=== PATIENT | female | born 1970 | race Caucasian/White ===

== ENCOUNTER 2021-12-20 10:29 | Outpatient (CLI) | payer OTHER, SELFPAY ==
--- NOTE | 2021-12-20 10:45 | MM_ITS ---
Final Report Patient: RICKIE FRANKS Facility:?[facility] Patient ID:?[id number] :?1970 Study:?XRay Breast Bilateral 2D W/CAD-12/20/2021 11:35:01 AM Ordering Physician:Vnaia Robles Final Report: BILATERAL SCREENING MAMMOGRAM WITH COMPUTER-AIDED DETECTION INDICATION: Screening mammogram. TECHNIQUE: BILATERAL screening mammograms with computer-aided detection. COMPARISON FILM: Mammograms 11/18/2020, 03/23/2017. BREAST COMPOSITION: There are scattered areas of fibroglandular density FINDINGS: Asymmetry in the lower RIGHT breast approximately 10 cm from the nipple seen on MLO view only. No suspicious microcalcifications, architectural distortion or skin thickening. LEFT breast is unremarkable with no mass, suspicious microcalcifications, architectural distortion or other evidence of malignancy. IMPRESSION: Focal asymmetry in the lower mid-RIGHT breast approximately 10 cm from the nipple seen on MLO view only. Recommend RIGHT MLO with tomosynthesis, spot compression, and targeted ultrasound for further evaluation. BI-RADS Category 0: Incomplete: Need Additional Imaging Evaluation and/or Prior Mammograms for Comparison [facility] will contact the patient for follow-up. Saul Holloway M.D. Diagnostic/Musculoskeletal Radiologist [email or web address] RADHA/josé miguel D& Transcribed: 9:44 a.m. RAN/Dictated by: Saul Holloway MD @ 12/21/2021 8:01:00 AM (Electronic Signature)
--- NOTE | 2021-12-20 11:15 | US_ITS ---
Final Report Patient: RICKIE FRANKS Facility:?[facility] Patient ID:?[id number] Site Patient ID:?[id number]. Site :?[id number] Study:?US Pelvis -12/20/2021 11:55:34 AM Ordering Physician:Vania Robles Final Report: INDICATION: Abnormal uterine bleeding. TECHNIQUE: Ultrasound pelvis transvaginal for better assessment or to better visualize the endometrium. Real-time sonographic images with spectral and color Doppler imaging of the ovaries were obtained. COMPARISON: None. FINDINGS: Uterus: 8 x 4.2 x 5.1 cm. Normal echotexture of the myometrium. There is a submucosal or endometrial lesion in the anterior lower uterine segment measuring 1.5 x 1.0 x 0.9 cm. Endometrium: Transvaginal imaging was performed to better evaluate the endometrium. Endometrial thickness measures 9 mm. Small amount of fluid in fundal endometrium measuring 2.2 x 0.7 x 0.4 cm. Right ovary measures 3.0 x 2.6 x 1.9 cm. Left ovary is surgically absent. No adnexal lesions or masses. Cul-de-sac: No significant free fluid. IMPRESSION: 1. Small collection of fluid in fundal endometrium measuring 2.2 x 0.7 x 0.4 cm 2. Anterior lower uterine segment mass lesion most likely sub mucosal fibroid versus endometrial mass. Endometrium may be abnormally thickened measuring 9 mm. Dictated by Saul Holloway MD @ 12/20/2021 12:13:08 PM (Electronic Signature)
== END 2021-12-20 10:30 | disposition home or self-care (01) ==
LOC: MAMMO 10:31
PROVIDERS: PCP Family Medicine; Visit Provider Obstetrics & Gynecology
DX: Z12.31 Encounter for screening mammogram for malignant neoplasm of breast (principal); R92.0 Mammographic microcalcification found on diagnostic imaging of breast; N93.9 Abnormal uterine and vaginal bleeding, unspecified; R19.00 Intra-abdominal and pelvic swelling, mass and lump, unspecified site; R93.89 Abnormal findings on diagnostic imaging of other specified body structures
CPT/HCPCS: 76830; 76856; 77063; 77067

== ENCOUNTER 2021-12-27 08:43 | Outpatient (CLI) | payer OTHER, SELFPAY ==
--- NOTE | 2021-12-27 08:45 | CRLHL7_ITS ---
For Patients: As a result of the Cures Act, medical imaging exams and procedure reports are released immediately into your electronic medical record. You may view this report before your referring provider. If you have questions, please contact your health care provider. RIGHT DIAGNOSTIC MAMMOGRAM WITH COMPUTER-AIDED DETECTION WITH TOMOSYNTHESIS RIGHT BREAST ULTRASOUND CLINICAL HISTORY: RIGHT breast mass/asymmetry. COMPARISON: 12/20/2021, 11/12/2020 TECHNIQUE: Digital RIGHT mammogram in 1 projection. Real-time ultrasound imaging of RIGHT breast with imaging documentation. Scanning was performed by both the technologist and the radiologist. BREAST COMPOSITION: There are scattered areas of fibroglandular density. FINDINGS: 3D spot-compression MLO mammogram RIGHT breast. Focus of density within the inferior RIGHT breast is similar to the prior exam without architectural distortion. No adenopathy or suspicious calcifications. Targeted RIGHT breast ultrasound performed inferiorly. At 7 o`clock 9 cm from the nipple, there is a benign cystic area measuring 7 x 2 x 8 millimeters. Similar benign-appearing cystic area just beneath the skin 6 o`clock 9 cm from the nipple. No suspicious findings. IMPRESSION: Benign cystic changes RIGHT breast 6-7 o`clock 9 cm from the nipple. No evidence of malignancy. RECOMMENDATIONS: Annual BILATERAL screening mammography. BI-RADS Category 2: Benign Results and recommendations discussed with the patient. Dictated by Chi Bautista MD @ 12/27/2021 10:44:08 AM Signed by: Chi Bautista @ 12/27/2021 10:44:08 AM (Electronic Signature) (Electronically Signed)
--- NOTE | 2021-12-27 09:15 | CRLHL7_ITS ---
For Patients: As a result of the Century Cures Act, medical imaging exams and procedure reports are released immediately into your electronic medical record. You may view this report before your referring provider. If you have questions, please contact your health care provider. RIGHT BREAST ULTRASOUND, 12/27/2021 PLEASE SEE RIGHT DIAGNOSTIC MAMMOGRAM OF SAME DAY. CRL:payal PT/Dictated by: Chi Bautista MD @ 12/27/2021 10:44:00 AM (Electronically Signed)
== END 2021-12-27 08:44 | disposition home or self-care (01) ==
LOC: MAMMO 08:44
PROVIDERS: PCP Family Medicine; Visit Provider Obstetrics & Gynecology
DX: N63.10 Unspecified lump in the right breast, unspecified quadrant (principal); N60.01 Solitary cyst of right breast; R92.8 Other abnormal and inconclusive findings on diagnostic imaging of breast
CPT/HCPCS: 76642; 77065; G0279

== ENCOUNTER 2022-01-19 07:17 | Day surgery (SDC) | payer OTHER, SELFPAY ==
[2022-01-19] MEDS: LACTATED RINGERS 1000 ML 1,000 ML 100 ML IV (07:30)
[2022-01-19 07:54] VITALS: BP 123/75; PULSE 67; RESP 16; TEMP 36.6; O2SAT 97
[2022-01-19 08:27] LABS: HCG Qualitative* Negative (Negative)
[2022-01-19] MEDS: SODIUM CHLORIDE 0.9 % (FLUSH) 10 ML SYRINGE IVF ×2 (08:32→12:17)
[2022-01-19] MEDS: ETHYL CHLORIDE 1 APPLICATION 1 APPLIC TOPICAL (08:32)
[2022-01-19] MEDS: LIDOCAINE 1% 20 ML VIAL 10 ML INJECTION (10:02)
--- NOTE | 2022-01-19 10:02 | P.GYNPRC_ITS ---
Procedure Note Date Seen: 01/19/22 Procedure Details: PREOPERATIVE DIAGNOSIS: Menorrhagia, intracavitary uterine lesion POSTOPERATIVE DIAGNOSIS: Menorrhagia, submucous fibroid PROCEDURE: Hysteroscopy, resection of submucous fibroid, dilation and curettage SURGEON: Margaret Mccartney MD ANESTHESIA: Monitored anesthesia care, paracervical block IV FLUIDS: 700 mL crystalloid URINE OUTPUT: 25 mL EBL: 15 mL SALINE DEFICIT: 1095 mL FINDINGS: 1. Exam under anesthesia revealed stage I cystocele. Uterus was anteverted, not palpably enlarged, and there were no palpable adnexal masses. 2. Upon hysteroscopy, survey of the endocervix was normal. Survey of the endometrial cavity revealed a largely submucous fibroid impinging upon the left lower uterine segment and distorting the cavity. It was approximately 2.5 cm in greatest dimension. The endometrium was otherwise fairly thin, and bilateral tu bal ostia were normal appearance. COMPLICATIONS: None PROCEDURE IN DETAIL: Patient was taken to the operating room with IV running. She was positioned in dorsal lithotomy position with her legs fully supported in Yellofin stirrups. Monitored anesthesia care was administered. She was prepped and draped in the usual sterile fashion. Exam under anesthesia was performed for the above-noted findings. Speculum was inserted. Cervix visualized and grasped along the anterior lip with a single-tooth tenaculum. Cervix was serially dilated to accommodate the TRUCLEAR hysteroscope. This was assembled with saline inflow and outflow in place. The line was flushed of bubbles. The hysteroscope was advanced through the cervix into the endometrial cavity for the above noted findings. The cervix was again dilated to accommodate the larger hysteroscope, in order to use the dense tissue blade. The tissue morcellator was then inserted through the operating channel. Window lock was performed. Under direct visualization, the endometrial cavity was circumferentially curetted with the dense tissue blade. The hysteroscope and morcellator were then removed from the uterus. Tenaculum was removed from the anterior lip of cervix. Hemostasis was noted. Patient tolerated procedure well. She was taken to recovery area in stable condition.
--- NOTE | 2022-01-19 10:02 | W.ANESCHARGE ---
Anesthesia Charges Start Date/Time Anesthesia Start Date: 01/19/22 Anesthesia Start Time: 09:08 Stop Date/Time Anesthesia Stop Date: 01/19/22 Anesthesia Stop Time: 10:02 Summary Emergency: No
[2022-01-19 10:07] VITALS: BP 139/80; PULSE 74; RESP 16; TEMP 36.1; O2SAT 96
[2022-01-19 10:20] VITALS: BP 127/68; PULSE 66; RESP 16; O2SAT 96
--- NOTE | 2022-01-19 10:20 | W.ANESCHARGE ---
Anesthesia Charges Start Date/Time Anesthesia Start Date: 01/19/22 Anesthesia Start Time: 09:08 Stop Date/Time Anesthesia Stop Date: 01/19/22 Anesthesia Stop Time: 10:02 Summary Emergency: No
[2022-01-19] MEDS: fentaNYL 100 MCG/2 ML inj 50 MCG IVP ×2 (10:30→10:38)
[2022-01-19 10:40] VITALS: BP 136/80; PULSE 70; RESP 14; O2SAT 95
[2022-01-19 11:37] VITALS: BP 99/52; PULSE 88; RESP 16; TEMP 36.6; O2SAT 96
[2022-01-19] MEDS: ACETAMINOPHEN 500 MG TABLET 1000 MG PO (11:41)
[2022-01-19] MEDS: METOCLOPRAMIDE HCL 5 MG/ML INJ 10 MG IVP (12:15)
[2022-01-19 12:20] VITALS: BP 116/71; PULSE 66; RESP 16; O2SAT 98
== END 2022-01-19 12:28 | disposition home or self-care (01) ==
PROVIDERS: PCP Family Medicine; Visit Provider Obstetrics & Gynecology
PROC: 0UDB8ZZ Extraction of Endometrium, Via Natural or Artificial Opening Endoscopic (ICD-10-PCS; CPT 58558; principal; 2022-01-19 08:30)
DX: N92.0 Excessive and frequent menstruation with regular cycle (principal); D25.0 Submucous leiomyoma of uterus
CPT/HCPCS: 58561; 00952; 36415; 84703; 86850; 86900; 86901; 88305; A9270; J1100; J1885; J2250; J2405; J2704; J2765; J3010; J7120

== ENCOUNTER 2022-06-09 15:03 | Outpatient (CLI) | payer OTHER, SELFPAY ==
[2022-06-09 17:02] LABS: Vitamin D 25 Hydroxy* 31 ng/mL (30-80)
== END 2022-06-09 15:04 | disposition home or self-care (01) ==
LOC: NFLDREF 15:04
PROVIDERS: PCP Family Medicine; Visit Provider Obstetrics & Gynecology
DX: R53.83 Other fatigue (principal)
CPT/HCPCS: 82306

== ENCOUNTER 2022-06-14 14:00 | Outpatient (RCR) | payer OTHER, SELFPAY | END 2022-06-15 10:57 | disposition home or self-care (01) | PROVIDERS: PCP Family Medicine; Visit Provider Obstetrics & Gynecology | DX: N39.41 Urge incontinence (principal); Z51.89 Encounter for other specified aftercare | CPT/HCPCS: 97110; 97112; 97140; 97162; 97535 ==

== ENCOUNTER 2023-04-06 08:00 | Outpatient (CLI) | payer OTHER, SELFPAY ==
--- NOTE | 2023-04-06 08:15 | CRLHL7_ITS ---
For Patients: As a result of the Cures Act, medical imaging exams and procedure reports are released immediately into your electronic medical record. You may view this report before your referring provider. If you have questions, please contact your health care provider. BILATERAL SCREENING MAMMOGRAM WITH COMPUTER-AIDED DETECTION AND TOMOSYNTHESIS TECHNIQUE: CC and MLO views were obtained. These mammographic images have been obtained using full-field digital technique. These mammographic images were interpreted with the benefit of computer-aided detection. Breast Tomosynthesis was used in this interpretation. COMPARISON FILM: 12/20/21, 10/29/20, 03/23/17. FINDINGS: There are scattered areas of fibroglandular density IMPRESSION: There is no radiographic evidence for malignancy. ASSESSMENT: BI-RADS Category 1: Negative RECOMMENDATION: Routine screening mammogram in 1 year. A lay language report of this examination will be provided to the patient. Chi Bautista M.D. Diagnostic Radiologist [email or web address] Transcribed: 12:27 p.jeff villafuerte/Dictated by: Chi Bautista MD @ 04/06/2023 10:04:00 AM (Electronically Signed)
== END 2023-04-06 08:01 | disposition home or self-care (01) ==
LOC: MAMMO 08:04
PROVIDERS: PCP Family Medicine; Visit Provider Family Medicine
DX: Z12.31 Encounter for screening mammogram for malignant neoplasm of breast (principal)
CPT/HCPCS: 77063; 77067

== ENCOUNTER 2023-04-20 09:29 | Outpatient (CLI) | payer OTHER, SELFPAY | END 2023-04-20 09:30 | disposition home or self-care (01) | PROVIDERS: PCP Family Medicine; Visit Provider Registered Nurse | DX: Z01.419 Encounter for gynecological examination (general) (routine) without abnormal findings (principal); R68.82 Decreased libido; Z13.6 Encounter for screening for cardiovascular disorders; Z13.29 Encounter for screening for other suspected endocrine disorder | CPT/HCPCS: 80061; 84443 ==

== ENCOUNTER 2023-08-30 14:03 | Outpatient (CLI) | payer OTHER, SELFPAY | END 2023-08-30 14:04 | disposition home or self-care (01) | LOC: LKVREF 14:04 | PROVIDERS: PCP Physician Assistant Medical; Visit Provider Physician Assistant Medical | DX: R73.03 Prediabetes (principal) | CPT/HCPCS: 80053 ==

== ENCOUNTER 2023-11-01 16:37 | Outpatient (CLI) | payer OTHER, SELFPAY ==
--- OUTSIDE RECORDS SUMMARY | 2023-11-02 06:44 | XMS_ITS | Clinical Summary ---
Author Name Unknown Organization [facility] Address [place], [place] [address] Care Team Providers Care Cooper Helper Name Role Phone Kiran Bautista MD Primary Care Provider [phone] Allergies Active Allergy Reactions Criticality Noted Date Comments Sulfa (Sulfonamide Antibiotics) *Unknown 09/2013 Medications Medication Sig Dispensed Refills Start Date End Date Status busPIRone (BUSPAR) 10 mg tablet 15mg in the morning, 10 mg in the evening 0 05/10/2020 Active ipratropium-albuter oL (COMBIVENT RESPIMAT) (20-100 mcg each actuation) mist inhaler Inhale 1 Puff by mouth 4 times daily. 0 05/10/2020 Active norethindrone-ethin yl estradiol (LOESTRIN 07/14, ,) 1-20 mg-mcg tablet Take 1 tablet by mouth once daily. 1 Package 05/10/2020 Active cholecalciferol, Vitamin D3, 2,000 unit tablet Take once daily 05/10/2020 Active aspirin (ECOTRIN) 81 mg enteric coated tablet Take 1 tablet by mouth once every other day. 0 05/10/2020 Active rosuvastatin (CRESTOR) 5 mg tabletIndications:A gatston CAC score 100-199 Take 0.5 Tablets (2.5 mg) by mouth once daily. Additional refills require cardiology appt with labs. Please call and schedule 90 Tablet 02/08/2022 Active Active Problems Problem Noted Date Diagnosed Date Hyperlipidemia 05/16/2020 Agatston CAC score 100-199 05/08/2020 Overview: HeartScan 02/27/2020 CAC score 136.5 (96th percentile). Palpitations 05/04/2017 SOB (shortness of breath) 05/04/2017 Family History Medical History Relation Name Comments Premature CHD (under age 60) Father of massive AK at age 46 Relation Name Status Comments Father Social History Tobacco Use Types Packs/Day Years Used Date Smoking Tobacco: Never Smokeless Tobacco: Never Alcohol Use Standard Drinks/Week Comments No 0 (1 standard drink = 0.6 oz pur e alcohol) Social Connections Answer Date Recorded Frequency of Communication with Friends and Fami ly Not on file 06/25/2021 Financial Resource Strain Answer Date R ecorded Difficulty of Paying Living Expenses Not on file 06/25/2021 Difficulty of Paying Living Expenses Not on file 06/25/2021 Sex and Gender Information Value Date Recorded Sex Assigned at Not on file Gender Identity Not on file Sexual Orientation Not on file Obstetrics History Last Filed Vital Signs Vital Sign Reading Time Taken Comments Blood Pressure 116/70 02/01/2021 10:00 AM CDT Pulse 72 02/01/2021 10:00 AM CDT Temperature 36.7 ??C (98.1 ??F) 05/10/2020 8:22 AM CS T Respiratory Rate 14 05/05/2014 1:53 PM AUDIO/VISUAL MANAGER Oxygen Saturation 96% 02/01/2021 10:00 AM CDT Inhaled Oxygen Concentration - - Weight 88.5 kg (195 lb) 02/01/2021 10:00 AM CDT Height 162.6 cm (5' 4) 02/01/2021 10:00 AM CDT Body Mass Index 33.47 02/01/2021 10:00 AM CDT Plan of Treatment Health Maintenance Due Date Last Done Comments Tdap 11/16/1979 Depression screening for age 12+ 1980 HIV for age 15-65 11/16/1983 Hepatitis C screening for age 18-79 1986 Tetanus booster 1988 Colonoscopy through age 75 2013 Mammogram for age 45-75 2013 Zoster (shingles) series for age 50+ (1 of 2) 2018 BMI (ht and wt on same day) for age 18+ 02/01/2022 02/01/2021, 12/01/2020, 05/10/2020 COVID-19 vaccine series (1 - 2023- season) 2023 Influenza for age 50-64 02/24/2024 Pap test for age 21-65 04/20/2026 , 04/20/2023, 03/21/2018, Additional history exists Lipids for age 45-75 05/17/2027 05/17/2022, 11/10/19 21 Pneumococcal series for age 6-64 Aged Out No longer eligible based on patient's age to complete this topic Procedures Procedure Name Priority Date/Time Associated Diagnosis Comments HPV THIN PREP Routine 04/20/2023 10:00 AM CDT LIPID PANEL Routine 05/17/2022 9:16 AM AUDIO/VISUAL MANAGER Pure hypercholesterolemia from Last 3 Months or Most Recently Relevant to Health Maintenance Results * HPV HIGH RISK (04/20/2023 10:00 AM CDT) TYPE 16 Negative Negative 04/25/2023 1:54 PM CDT [facility] TYPE 18 Negative Negative 04/25/2023 1:54 PM CDT [facility] OTHER HIGH RISK TYPES Negative Negative 04/25/2023 1:54 PM CDT [facility] Other (Cervical) 04/20/2023 10:00 AM CDT 04/23/2023 2:03 PM CDT Narrative [facility] - 04/25/2023 1:54 PM CDT HPV types 16, 18, 31, 33, 35, 39, 45, 51, 52, 56, 58, 59, 66 and 68 DNA were undetectable or below the pre-set threshold. Methodology: Jj Joi 4800 HPV Test Karissa Wolff NP MICROBIOLOGY [facility] [address] [place] [address], * LIPID PANEL (05/17/2022 9:16 AM AUDIO/VISUAL MANAGER) CHOLESTEROL,TOTAL 185 100 - 199 mg/dL 05/18/2022 2:23 PM AUDIO/VISUAL MANAGER [facility] TRIGLYCERIDES 92 <150 mg/dL 05/18/2022 2:23 PM AUDIO/VISUAL MANAGER [facility] HDL CHOLESTEROL 64 >40 mg/dL 2:23 PM AUDIO/VISUAL MANAGER [facility] NON-HDL CHOLESTEROL 121 <145 mg/dl 05/18/2022 2:23 PM AUDIO/VISUAL MANAGER [facility] CHOL/HDL RATIO 2.89 <4.50 05/18/2022 2:23 PM AUDIO/VISUAL MANAGER [facility] LDL CHOLESTEROL 103 <=130 mg/dL 05/18/2022 2:23 PM AUDIO/VISUAL MANAGER [facility] VLDL CHOLESTEROL 18 <=30 mg/dL 05/18/2022 2:23 PM AUDIO/VISUAL MANAGER [facility] PROVIDER ORDERED STATUS RANDOM 05/18/2022 2:23 PM AUDIO/VISUAL MANAGER [facility] Blood BLOOD SPECIMEN / Unknown Venipuncture / Unknown 05/17/2022 9:16 AM AUDIO/VISUAL MANAGER 05/17/2022 9:16 AM AUDIO/VISUAL MANAGER [facility] [address] [place] [address], from Last 3 Months or Most Recently Relevant to Health Maintenance Advance Directives * Full Code (Latest Code Status on File) Date Activated Date Inactivated Comments 05/05/2014 9:29 AM 05/05/2014 4:42 PM Care Teams Cooper Helper Relationship Specialty Start Date End Date Kiran Bautista MD [address] [place] [address] PCP - General Family Practice 05/10/20
--- OUTSIDE RECORDS SUMMARY | 2023-11-02 06:45 | XMS_ITS | Encounter Summary ---
Author Name Unknown Organization [place] Address [facility] [place] [address] Care Team Providers Care Superintendent Radio Communications Name Role Phone Kiran Bautista MD Primary Care Provider Doretha Low MD Unavailable Doyle Bar MD Unavailable [phone] Marsha Townsend RN Unavailable [phone] Andrey Portillo MD Unavailable [phone] Doretha Low MD Unavailable Daniele Zhou MD Unavailable [phone] Doretha Low MD Unavailable Daniele Zhou MD Unavailable [phone] Encounter Details Date Type Department Care Team (Late st Contact Info) Description 11/08/2020 [facility] [address] [place] [address] Caterina Adame LPN Social History Tobacco Use Types Packs/Day Years Used Date Smoking Tobacco: Never Smokeless Tobacco: Never Alcohol Use Standard Drinks/Week Comments No 0 (1 standard drink = 0.6 oz pur e alcohol) PHQ-2 Answer Date Recorded PHQ-2 Score 0 10/28/2020 Sex and Gender Information Value Date Recorded Sex Assigned at Female 10/31/2020 8:19 PM CDT Gender Identity Female 10/31/2020 8:19 PM CDT Sexual Orientation Not on file COVID-19 Exposure Response Date Recorded In the last month, have you been in contact with someone who was confirmed or suspected to have Coronavirus / COVID-19? No / Unsure 11/10/2020 10:48 AM CDT documented as of this encounter Plan of Treatment Not on file documented as of this encounter Visit Diagnoses Not on filedocumented in this encounter Care Teams Superintendent Radio Communications Relationship Specialty Start Date End Date Kiran Bautista MD PCP - General Family Medicine 10/28/20 Doretha Low MD [address] [address] Assigned Surgical Provider 11/21/20 Doyle Bar MD [address] [address] Assigned Pulmonology Provider 11/14/20 05/12/22 Marsha Townsend RN [address] Surgery 04/04/21 Andrey Portillo MD [address] [address] Assigned Surgical Provider 05/06/22 Doretha Low MD [address] [address] Assigned Surgical Provider 06/10/22 Daniele Zhou MD [address] [address] Assigned Surgical Provider 08/19/22 Doretha Low MD [address] [address] Assigned Surgical Provider 10/21/2210/27/22 Daniele Zhou MD [address] [address] Assigned Surgical Provider 10/28/22 documented as of this encounter
--- OUTSIDE RECORDS SUMMARY | 2023-11-02 06:45 | XMS_ITS | Clinical Summary ---
Author Name Unknown Organization [facility] Address [address] [place] [address] Care Team Providers Care Housing Project Manager Name Role Phone Doretha Stahl MD Primary Care Provider [phone] Source Comments You are receiving this document as you are listed as the primary care provider,follow-up provider, or the patient has been referred to you for consultation.This is in compliance with the Medicare andSelect Medical [facility] Hospital[facility] EHR Incentive Program,which states Providers who transition their patient to another setting of careor provider of care or refers their patient to another provider of care shouldprovide summary care record for each transition of care or referral. [facility] Allergies Active Allergy Reactions Criticality Noted Date Comments Hydrocodone Hives,Itching High 12/18/2018 Sulfa Antibiotics 03/06/2005 PN: - HIVES Medications Medication Sig Dispensed Refills Start Date End Date Status rosuvastatin (CRESTOR) 5 MG tablet Take by mouth daily. 05/25/2022 Active venlafaxine (EFFEXORXR) 75 MG 24 hour release capsule Take 1 Capsule (75 mg) by mouth daily. 08/30/2022 Active ALBUterol sulfate HFA 108 (90 Base) MCG/ACT inhaler Inhale. 06/09/2022 Active busPIRone (BUSPAR) 10 MG tablet Take 1 Tablet (10 mg) by mouth two times a day. 06/09/2022 Active Cholecalciferol 125 MCG (5000 UT) Take 125 mcg by mouth every other day. Active estradiol (ESTRACE) 0.1 MG/GM vaginal cream Insert vaginally. 06/22/2022 Active oxyCODONE (ROXICODONE) 5 MG immediate release tablet Take 1 Tablet (5 mg) by mouth every 4 hours as needed for Pain. 10 Tablet 10/04/2022 Active Active Problems Problem Noted Date Diagnosed Date Obesity due to excess calori es, unspecified obesity severity 10/03/2022 Mild intermittent asthma without complication Complex tear of medial menis cus of right knee as current injury 09/26/2022 Overview: Added automatically from request for surgery [id number] Bilateral sensorineural hearing loss 02/07/2019 Overview: Cochlear implants Depression, major, in remission 03/11/2015 Overview: Past history of post depression Varicose vein of leg 03/11/2015 Overview: Increased exercise. Considering sclerotherapy in the future. ; Varicose veins H/O melasma 03/11/2015 Overview: Using hydroquinone cream as needed Lactose intolerance 03/02/2014 Hearing loss 06/12/2008 Overview: FROM MENIGITIS @ 4 YEARS OLD ; Hearing Loss Bilateral Resolved Problems Problem Noted Date Diagnosed Date Resolved Date Complex tear of medial menis cus of right knee as current injury 09/26/2022 10/03/2022 Overview: Added automatically from request for surgery [id number] Varicose veins of right lowe r extremity with complications 11/01/2018 10/03/2022 Overview: Added automatically from request for surgery [id number] Paresthesia 03/11/2015 10/03/2022 Overview: in right and left legs. Related to varicose veins. Went to [facility] for evaluation. Cutaneous candidiasis 04/22/20142014 Overview: under breasts Routine health maintenance 03/02/2014 0 10/03/2022 Overview: Reviewed at physical exam 03/02/2014 Menstrual periods: regular Calcium/vit D: Recommended daily DEXA: NA, DUE post menopause ASA: NA Obesity: Body mass index is 29.77 kg/(m^2). Exercise: Recommended daily 30 min Smoking cessation: Never smoker Mammogram: Last normal 02/2013, DUE Pap smear: Last 01/2013 with co-neg HPV, DUE 2018 Colonoscopy: DUE age 48, no FHx Hematuria 05/13/2009 10/03/2022 Overview: MICROSCOPIC; DR. BARRIENTOS 07/2008 Last urinalysis in 2013 within normal limits. 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 06/12/20 08 03/11/2015 Overview: RESECTED DUE TO MENORRHAGIA 2000 ; Myoma Complication of 04/11/2006 Overview: 2004 ; Hyperglycemia w Preg Major depressive disorder, single episode 04/11/2006 03/11/2015 Overview: post- ; Depression Major NOS Encounters Date Type Department Care Team Description 08/21/2023 Notes/Orders [facility] [address] [place] [address] Kalyan Finn MD from Last 3 Months Immunizations Name Administration Dates Next Due Flu Vac (3+ yrs) 05/21/2000 Flu Vac Preserv Free (3+yrs) 04/07/2011,03/26/20 07,04/05/2006,04/13/2005 HepA-HepB ([place], 18+ yrs) 07/19/2011 Influenza LAIV ([place], 2-49 yrs) 04/05/2009,03/25 TB Skin Test (PPD) 04/11/2006,03/17/2005, 005 TDAP (ADACEL) 12/18/2005 Td 02/13/1999 Family History Medical History Relation Name Comments Depression Father Hearing Loss Father Heart Disease Father Kidney/Bladder Disease Father High Blood Pressure Mother Cataract Maternal Grandfather Lupus Maternal Grandfather Stroke Maternal Grandfather Diabetes Maternal Grandmother Osteoporosis Maternal Grandmother Stroke Maternal Grandmother No Known Family HIstory Problems Paternal Grandfather Macular Degeneration Paternal Grandmother Depression Sister depression, ADD BRCA 1/2 Negative Family History Cancer Negative Family History Cancer, Breast Negative Family History Cancer, Colon Negative Family History Cancer, Endometrial Negative Family History Cancer, Ovary Negative Family History Debi Syndrome Negative Family History Diethylstilbestrol Exposure Negative Family History Li-Fraumeni Syndrome Negative Family History Relation Name Status Comments Father depression, dillon al failure, hearing loss Mother Alive Daughter 1 Alive Daughter 2 Alive Maternal Grandfather Maternal Grandmother Paternal Grandfather Paternal Grandmother Sister Alive Son Alive Social History Tobacco Use Types Packs/Day Years Used Date Smoking Tobacco: Former Cigarettes 0.5 25 0 06/25/1977 - 06/25/2002 Smokeless Tobacco: Never Tobacco Cessation:Counseling Given: Not Answered Comments:Quit smoking: Alcohol Use Standard Drinks/Week Comments No 0 (1 standard drink = 0.6 oz pur e alcohol) Sex and Gender Information Value Date Recorded Sex Assigned at Not on file Gender Identity Not on file Sexual Orientation Not on file Last Filed Vital Signs Vital Sign Reading Time Taken Comments Blood Pressure 119/66 10/04/2022 3:50 PM CDT Pulse 75 10/04/2022 3:50 PM CDT Temperature 36.5 ??C (97.7 ??F) 10/04/2022 3:23 PM CD T Respiratory Rate 16 10/04/2022 3:50 PM CDT Oxygen Saturation 97% 10/04/2022 3:50 PM CDT Inhaled Oxygen Concentration - - Weight 86.2 kg (190 lb) 10/04/2022 11:52 AM CDT Height 162.6 cm (5' 4) 10/04/2022 11:52 AM CDT Body Mass Index 32.61 10/04/2022 11:52 AM CDT Plan of Treatment Health Maintenance Due Date Last Done Comments Hep C Screening (Preventive Services) 1968 Adult Preventive Visit 1986 HepA (2 of 3 - Hep A Twinrix risk 3-dose series) 08/16/2011 07/19/2011 HepB (2) 08/16/2011 07/19/2011 FIT Colon Cancer Screening 2012 Mammogram 03/09/2015 03/09/2014, 02/23, 12/09/2009 Cervical Cancer Screening 03/11/20182014, 02/10/2013, 07/19/2011, Additional history exists Zoster/Shingles (1 of 2) 2018 Cholesterol 03/11/2020 03/11/2015, 09/0 01/2014, 02/10/2013, Additional history exists COVID-19 Vaccine ( - season) 2023 Influenza (Season Ended) 2024 011, 04/05/2009, 04/10/2008, Additional history exists DTaP/Tdap/Td (4 - Tdap) 02/03/2026 02/04/20 16, 02/04/2016, 12/18/2005, Additional history exists Pneumococcal (3 - PPSV23 or PCV20) 2033 01/07/2021, 10/29/2020 HIV Screening (Preventive Services) Completed 12/04/2006 Hib Aged Out No longer eligi ble based on patient's age to complete this topic IPV (Polio) Aged Out No longer eligi ble based on patient's age to complete this topic MCV4 Aged Out No longer eligi ble based on patient's age to complete this topic Medical Devices Implanted Type Area Timber Grader Device Identifier Shelf Expiration Date Model / Serial / Lot Cochlear Implant Advanced Bionics HI-RES 3D ULTRA CI- [id number] / / Procedures Procedure Name Priority Date/Time Associated Diagnosis Comments ANATOMICAL PATH LIQUID BASED Routine 03/11/2015 10:01 AM CDT LIPID PANEL & DIRECT LDL (IF NEEDED) Routine 03/11/2015 9:57 AM CDT Screening for hyperlipidemia MM MAMMOGRAM SCREENING BILAT W CAD Routine 03/09/2014 2:02 PM CDT Breast screening, unspecified HIV ANTIBODY Routine 12/04/2006 11:43 AM CDT from Last 3 Months or Most Recently Relevant to Health Maintenance Results * Pap Smear (03/11/2015 10:01 AM CDT) 03/11/2015 10:0 1 AM CDT Narrative HP CONVERSION - 03/17/2015 1:51 [place] [address] FINAL GYNECOLOGICAL CYTOLOGY REPORT Pathology #: [id number] ?Date Obtained: 03/11/2015 ? Date Received: 03/12/2015 INTERPRETATION/RESULTS: Negative for Intraepithelial Lesion or Malignancy. SPECIMEN ADEQUACY: Satisfactory for Evaluation. ??Endocervical cells/transformation zone component present. Verified on 03/17/2015 ??by DIANA HORTON(ASCP) (electronic signature) CLINICAL NOTES: ?Abnormal bleeding: No, LMP: 01/25/15, Menstrual status: None Apply, ?Current form of therapy: None apply LIQUID BASED PAP SMEAR SPECIMEN TYPE: ?ROUTINE CERVICAL PAP TEST PLEASE NOTE: The pap smear is a screening test designed to aid in the detection of cervical cancer and its precursor lesions. It is not a diagnostic procedure and should not be used as the sole means of detecting cervical cancer. Both false-positive and false-negative reports may occur. ? End of Report Transcriptions 08/03/2016 2:40 AM CSTNotes Recorded by Susan Caballero RN on 04/05/2015 at 1:55 PMGuevara Carreno,I am writing to let you know that your PAP and HPV result is negative. This means that your test result was normal. No cancer or precancerous cells were seen.Based on current cervical cancer screening recommendations, your next PAP and HPV should be in 3 years. Continue to schedule your annual preventive exams for your overall health.If you have questions about cervical cancer screening or your test results, callCervical Cancer Screening and Management [phone] steele RN on behalf ofDr. Yenny Ritchie, Medical DirectorNorthfield City Hospital Cervical Cancer Screening and Management Julienne Torres APRN, CNP LAB_1 Performing Organization Address [facility] de Phone Number HP CONVERSION * (ABNORMAL) Lipid Panel and Direct LDL(If Needed) (03/11/2015 9:57 AM CDT) Cholesterol 205(H) 0 - 200 mg/dL HP CONVERSION Triglycerides 119 0 - 149 mg/dL HP CONVERSION HDL Cholesterol 54 >39 mg/dL HP CONVERSION Cholesterol/HDL Ratio Screen 3.8 HP CONVERSION LDL Calculated 127 19 - 130 mg/dL HP CONVERSION Hours Fasting 12.0 HP CONVERSION 03/11/2015 9:57 AM CDT 03/11/2015 9:57 AM CDT Narrative HP CONVERSION - 03/11/2015 10:35 AM CDT Performed at [facility], [address] [place] [address] Transcriptions 08/03/2016 3:37 AM CSTNotes Recorded by Julienne Torres APRN, CNP on 03/11/2015 at 11:28 AMElevation in total cholesterol noted. Julienne Torres APRN, CNP LAB_1 Performing Organization Address [facility] de Phone Number HP CONVERSION * MM Mammogram Screening Bilat W CAD (03/09/2014 2:02 PM CDT) Anatomical Region Laterality Modality Breast Bilateral Mammography Impressions 03/09/2014 2:40 PM CDT : BIRADS 1 Negative (overall) Follow Up Mammogram in 1 year - Bilateral The results and recommendations of this examination will be communicated to the patient by the [facility] and we will attempt to schedule any recommended imaging follow up with the patient. Narrative 03/09/2014 2:40 PM CDT Compared to: 03/07/2013 MM Mammogram Screening Bilateral W Cad, 12/09/2009 MM MAMMOGRAM DIGITAL SCRN W CAD Bilateral Breast Findings: There are scattered fibroglandular densities (25-50%) in the breasts. No significant mass, calcifications or other abnormalities are seen in either breast. Procedure Note Niels Hurtado MD - 02/22/2016 Compared to: 03/07/2013 MM Mammogram Screening Bilateral W Cad,12/09/2009 MM MAMMOGRAM DIGITAL SCRN W CAD Bilateral Breast Findings: There are scattered fibroglandular densities (25-50%) in the breasts. No significant mass, calcifications or other abnormalities are seen in either breast. IMPRESSION : BIRADS 1 Negative (overall) Follow Up Mammogram in 1 year - Bilateral The results and recommendations of this examination will be communicated to the patient by the [facility] and we will attempt to schedule any recommended imaging follow up with the patient. Doretha Stahl MD RAD JAZLYN * HIV Antibody (12/04/2006 11:43 AM CDT) HIV 1/HIV 2 Non Reac Non Reac HP CONVERSION 12/04/2006 11:4 3 AM CDT Smita Causey RN LAB_1 HP CONVERSION from Last 3 Months or Most Recently Relevant to Health Maintenance Care Teams Housing Project Manager Relationship Specialty [place] [address] [address] [place] [address] PCP - General Internal Medicine 04/11/16
--- OUTSIDE RECORDS SUMMARY | 2023-11-02 06:45 | XMS_ITS | Encounter Summary ---
Author Name Unknown Organization [facility] Address [facility] [place] [address] Care Team Providers Care Personal Lines Insurance Agent Name Role Phone Kiran Bautista MD Primary Care Provider Doretha Low MD Unavailable Doyle Bar MD Unavailable [phone] Marsha Townsend RN Unavailable [phone] Andrey Portillo MD Unavailable [phone] Doretha Low MD Unavailable Daniele Zhou MD Unavailable [phone] Doretha Low MD Unavailable Daniele Zhou MD Unavailable [phone] Encounter Details Date Type Department Care Team (Late st Contact Info) Description 02/14/2021 [facility] Medical Advice [facility] Audiology [address] 4th [place] [address] Neelam Toussaint, Liam [address] [place] [address] Social History Tobacco Use Types Packs/Day Years Used Date Smoking Tobacco: Never Smokeless Tobacco: Never Alcohol Use Standard Drinks/Week Comments No 0 (1 standard drink = 0.6 oz pur e alcohol) PHQ-2 Answer Date Recorded PHQ-2 Score 0 02/14/2021 Sex and Gender Information Value Date Recorded Sex Assigned at Female 10/31/2020 8:19 PM CDT Gender Identity Female 10/31/2020 8:19 PM CDT Sexual Orientation Not on file COVID-19 Exposure Response Date Recorded In the last month, have you been in contact with someone who was confirmed or suspected to have Coronavirus / COVID-19? No / Unsure 02/16/2021 1:45 PM CDT documented as of this encounter Plan of Treatment Not on file documented as of this encounter Visit Diagnoses Not on filedocumented in this encounter Care Teams Personal Lines Insurance Agent Relationship Specialty Start Date End Date Kiran Bautista MD PCP - General Family Medicine 10/28/20 Doretha Low MD [address] [place] [address] Assigned Surgical Provider 11/21/20 Doyle Bar MD [address] [address] Assigned Pulmonology Provider 11/14/20 05/12/22 Marsha Townsend RN [address] [address] Specialty Dairy Lab Technician Surgery 04/04/21 Andrey Portillo MD [address] [facility] [address] [place] [address] Assigned Surgical Provider 05/06/22 Doretha Low MD [address] [place] [address] [address] [place] [address] Assigned Surgical Provider 06/10/22 Daniele Zhou MD [address] [address] Assigned Surgical Provider 08/19/22 Doretha Low MD [address] [address] Assigned Surgical Provider 10/21/2210/27/22 Daniele Zhou MD [address] [address] Assigned Surgical Provider 10/28/22 documented as of this encounter
--- OUTSIDE RECORDS SUMMARY | 2023-11-02 06:45 | XMS_ITS | Encounter Summary ---
Author Name Unknown Organization [facility] Address [facility] [place] [address] Care Team Providers Care Trimming Machine Operator Name Role Phone Kiran Bautista MD Primary Care Provider Doretha Low MD Unavailable Doyle Bar MD Unavailable [phone] Marsha Townsend RN Unavailable [phone] Andrey Portillo MD Unavailable [phone] Doretha Low MD Unavailable Daniele Zhou MD Unavailable [phone] Doretha Low MD Unavailable Daniele Zhou MD Unavailable [phone] Encounter Details Date Type Department Care Team (Late st Contact Info) Description 12/16/2020 [facility] Medical [facility] [address] [place] [address] [facility] Social History Tobacco Use Types Packs/Day Years [...] PM CDT Sexual Orientation Not on file documented as of this encounter Plan of Treatment Not on file documented as of this encounter Visit Diagnoses Not on filedocumented in this encounter Care Teams Trimming Machine Operator Relationship Specialty Start Date End Date Kiran Bautista MD PCP - General Family Medicine 10/28/20 Doretha Low MD [address] [address] Assigned Surgical Provider 11/21/20 Doyle Bar MD [address] [address] Assigned Pulmonology Provider 11/14/20 05/12/22 Marsha Townsend RN [address] [address] Specialty Administrative Support Technician Surgery 04/04/21 Andrey Portillo MD [address] [address] Assigned Surgical Provider 05/06/22 Doretha Low MD [address] [address] Assigned Surgical Provider 06/10/22 Daniele Zhou MD [address] [address] Assigned Surgical Provider 08/19/22 Doretha Low MD [address] [address] Assigned Surgical Provider 10/21/2210/27/22 Daniele Zhou MD [address] [address] Assigned Surgical Provider 10/28/22 documented as of this encounter
--- OUTSIDE RECORDS SUMMARY | 2023-11-02 06:45 | XMS_ITS | Encounter Summary ---
Author Name Unknown Organization [facility] Address On license of [facility] [place] [address] Care Team Providers Care Management Psychologist Name Role Phone Kiran Bautista MD Primary Care Provider [phone] Doretha Low MD Unavailable Doyle Bar MD Unavailable [phone] Marsha Townsend RN Unavailable [phone] Andrey Portillo MD Unavailable [phone] Doretha Low MD Unavailable Daniele Zhou MD Unavailable [phone] Doretha Low MD Unavailable Daniele Zhou MD Unavailable [phone] Encounter Details Date Type Department Care Team (Late st Contact Info) Description 12/06/2020 [facility] [place] Audiology [address] [place] [address] Neelam Toussaint, Liam [address] [place] [address] Social History Tobacco Use Types Packs/Day [...] on filedocumented in this encounter Care Teams Management Psychologist Relationship Specialty Start Date End Date Kiran Bautista MD PCP - General Family Medicine 10/28/20 Doretha Low MD [address] [place] [address] Assigned Surgical Provider 11/21/20 Doyle Bar MD [address] [address] Assigned Pulmonology Provider 11/14/20 05/12/22 Marsha Townsend RN [address] [address] Specialty Computer Aided Design Drafter Surgery 04/04/21 Andrey Portillo MD 420 [facility] [address] [place] [address] Assigned Surgical Provider 05/06/22 Doretha Low MD [address] [place] [address] [address] [place] [address] Assigned Surgical Provider 06/10/22 Daniele Zhou MD [address] [address] Assigned Surgical Provider 08/19/22 Doretha Low MD [address] [address] Assigned Surgical Provider 10/21/2210/27/22 Daniele Zhou MD [address] [address] Assigned Surgical Provider 10/28/22 documented as of this encounter
--- OUTSIDE RECORDS SUMMARY | 2023-11-02 06:45 | XMS_ITS | Encounter Summary ---
Author Name Unknown Organization [facility] Address [address] [facility] [place] [address] Care Team Providers Care Floral Associate Name Role Phone Kiran Bautista MD Primary Care Provider [phone] Marsha Townsend RN Unavailable [phone] Andrey Portillo MD Unavailable [phone] Doretha Low MD Unavailable Daniele Zhou MD Unavailable [phone] Doretha Low MD Unavailable Daniele Zhou MD Unavailable [phone] Encounter Details Date Type Department Care Team (Late st Contact Info) Description 06/08/2022 [facility] [address] [place] [address] Caterina Adame LPN Social History Tobacco Use Types Packs/Day Years Used Date Smoking Tobacco: Never Smokeless Tobacco: Never Alcohol Use Standard Drinks/Week Comments No 0 (1 standard drink = 0.6 oz pur e alcohol) PHQ-2 Answer Date Recorded PHQ-2 Score 0 05/31/2022 Sex and Gender Information Value Date Recorded Sex Assigned at Female 10/31/2020 8:19 PM CDT Gender Identity Female 10/31/2020 8:19 PM CDT Sexual Orientation Not on file COVID-19 Exposure Response Date Recorded In the last 10 days, have yo u been in contact with someone who was confirmed or suspected to have Coronavirus/COVID-19? No / Unsure 06/06/2022 9:26 AM DENTAL FLOSS PACKER documented as of this encounter Plan of Treatment Not on file documented as of this encounter Visit Diagnoses Not on filedocumented in this encounter Care Teams Floral Associate Relationship Specialty Start Date End Date Kiran Bautista MD PCP - General Family Medicine 10/28/20 Marsha Townsend, RN Specialty Operations Support Manager Surgery 04/04/21 Andrey Portillo MD [address] [address] Assigned Surgical Provider 05/06/22 Doretha Low MD [address] [id number] Assigned Surgical Provider 06/10/22 Daniele Zhou MD [address] [id number] Assigned Surgical Provider 08/19/22 Doretha Low MD [address] [id number] Assigned Surgical Provider 10/21/2210/27/22 Daniele Zhou MD [address] [address] Assigned Surgical Provider 10/28/22 documented as of this encounter
--- OUTSIDE RECORDS SUMMARY | 2023-11-02 06:45 | XMS_ITS | Encounter Summary ---
Author Name Unknown Organization [place] Address [facility] [place] [address] Care Team Providers Care System Safety Manager Name Role Phone Kiran Bautista MD Primary Care Provider Doretha Low MD Unavailable Doyle Bar MD Unavailable [phone] Marsha Townsend RN Unavailable [phone] Andrey Portillo MD Unavailable [phone] Doretha Low MD Unavailable Daniele Zhou MD Unavailable [phone] Doretha Low MD Unavailable Daniele Zhou MD Unavailable [phone] Encounter Details Date Type Department Care Team (Late st Contact Info) Description 02/16/2021 [facility] Medical Advice [facility] Audiology [address]th [place] [address] Neelam Toussaint, Liam [address] [place] [address] Social History Tobacco Use Types Packs/Day [...] on filedocumented in this encounter Care Teams System Safety Manager Relationship Specialty Start Date End Date Kiran Bautista MD PCP - General Family Medicine 10/28/20 Doretha Low MD [address] [place] [address] Assigned Surgical Provider 11/21/20 Doyle Bar MD [address] [address] Assigned Pulmonology Provider 11/14/20 05/12/22 Marsha Townsend RN [address] [address] Specialty Ux Specialist Surgery 04/04/21 Andrey Portillo MD 420 [facility] [address] [place] [address] Assigned Surgical Provider 05/06/22 Doretha Low MD [address] [place] [address] [address] [place] [address] Assigned Surgical Provider 06/10/22 Daniele Zhou MD [address] [address] Assigned Surgical Provider 08/19/22 Doretha Low MD [address] [address] Assigned Surgical Provider 10/21/2210/27/22 Daniele Zhou MD [address] [address] Assigned Surgical Provider 10/28/22 documented as of this encounter
--- OUTSIDE RECORDS SUMMARY | 2023-11-02 06:45 | XMS_ITS | Encounter Summary ---
Author Name Unknown Organization [facility] Address [address] [place] [address] Care Team Providers Care Manager Ed Name Role Phone Doretha Stahl MD Primary Care Provider [phone] Encounter Details Date Type Department Care Team (Late st Contact Info) Description 08/21/2023 Notes/Orders [facility] [address] [place] [address] Kalyan Finn MD [address] [facility] [place] [address] Social History Tobacco Use Types Packs/Day Years Used Date Smoking Tobacco: Former Cigarettes 0.5 25 0 06/25/1977 - 06/25/2002 Smokeless Tobacco: Never Comments:Quit smoking: Alcohol Use Standard Drinks/Week Comments No 0 (1 standard drink = 0.6 oz pur e alcohol) Sex and Gender Information Value Date Recorded Sex Assigned at Not on file Gender Identity Not on file Sexual Orientation Not on file documented as of this encounter Plan of Treatment Not on file documented as of this encounter Visit Diagnoses Not on filedocumented in this encounter Care Teams Manager Ed Relationship Specialty [place] [address] [employer] [address] PCP - General Internal Medicine 04/11/16 documented as of this encounter
--- OUTSIDE RECORDS SUMMARY | 2023-11-02 06:45 | XMS_ITS | Encounter Summary ---
Author Name Unknown Organization [facility] Address [address] [place] [address]. [place] [address] Care Team Providers Care It Support Specialist Name Role Phone Kiran Bautista MD Primary Care Provider [phone] Marsha Townsend RN Unavailable [phone] Daniele Zhou MD Unavailable [phone] Encounter Details Date Type Department Care Team (Late st Contact Info) Description 01/29/2023 MyC Medical Advice [facility] Audiology [address] 4[address] [place] [address] Neelam Toussaint, [address] [address] Social History Tobacco Use Types Packs/Day [...] on filedocumented in this encounter Care Teams It Support Specialist Relationship Specialty Start Date End Date Kiran Bautista MD PCP - General Family Medicine 10/28/20 Marsha Townsend RN Specialty Purchasing Department Clerk Surgery 04/04/21 Daniele Zhou MD [address] [place] [address] [address] [place] [address] Assigned Surgical Provider 10/28/22 documented as of this encounter
--- OUTSIDE RECORDS SUMMARY | 2023-11-02 06:45 | XMS_ITS | Continuity of Care Document ---
Author Name Unknown Organization [facility] Address [address] [address] [place] [address] Phone Care Team Providers Care Calender Runner Name Role Phone Reginald Wu Unavailable Unavailable Allergies, Adverse Reactions, Alerts Substance Reaction Status Criticality beclomethasone Numbnesstingling Active No Inform ation Sulfa (Sulfonamide Antibiotics) HivesHives Active No Information Medications Medication Instructions Dosage Effective Dates (start - stop) Status Comments Ventolin HFA 90 mcg/actuation aerosol inhaler inhale 2 puff by inhalation route every 4 - 6 hours as needed 180 MCG - Active ESTROGEL (unknown strength) Use vaginally once every other day Not Available - Active buspirone 10 mg tablet take 1 tablet by oral route 2 times every day 10 MG - Active venlafaxine 75 mg tablet take 1 tablet by oral route 3 times every day with food 75 MG - Active fluticasone propionate 50 mcg/actuation nasal spray,suspension spray 1 - 2 spray by intranasal route every day in each nostril as needed 50-100 MCG - Active Procedures Procedure Date cancelled appt Colonoscopy Flex; W/remov Les- 23 Level Iv-surg Path Gross/micro 23 Offic/outpt E&m New Mod-hi Advance Directives Directive Yes / No Effective Date File Name No Information Encounters Encounter Description Practice Location Reason(s) For Visit Diagnoses Date Provider Providers Copied on Encounter [facility], [address] [address], [place], [id number], [place] tel:[phone] [employer] No Information 3 Mendel Montelongo. [address] [facility], [place], [id number], [place]. tel:[phone] Referring Provider: Referral Self, USE FOR SELF REFERRALS. [facility], [address] [address], [place], [id number], [place] tel:[phone] [facility] GI Symptoms or Concerns (chief complaint) Colorectal polypsDiverticulos is of colonInternal hemorrhoidsHemorrh age of anus and rectumBenign neoplasm of transverse colonBenign neoplasm of sigmoid colonDvrtclos of lg int w/o perforation or abscess w/o bleedingBenign neoplasm of sigmoid colonBenign neoplasm of transverse colon 3 Marvin Hager. [address] [facility], [address], [place], [id number], [place]. tel:[phone] Referring Provider: Referral Self, USE FOR SELF REFERRALS. Offic/outpt E&m New Mod-hi [facility], [address] [address], [place], [id number], [place] tel:[phone] [facility] GI Symptoms or Concerns (chief complaint) Full incontinence of fecesRectal bleedingThrombosed external hemorrhoidDietary counseling and surveillanceElevat ed blood-pressure reading, w/o diagnosis of htn 3 Collin Marroquin. [address] [facility] [address], [address], [place], [id number], [place]. tel:[phone] Referring Provider: Referral Self, USE FOR SELF REFERRALS. [facility], [address] [address], [place], [id number], [place] tel:[phone] [facility] No Information 3 Giuseppe Alarcon. [address] [facility] [address], [address], [place], [id number], [place]. tel:[phone] Family History Family Member Type Diagnosis Age At Onset Sister Problem (finding) Gallbladder disease Daughter Problem (finding) Asthma Mother Problem (finding) Colon polyps Mother Problem (finding) Irritable bowel syndrom e Mother Problem (finding) Gallbladder disease Mother Problem (finding) Thyroid disorder Mother Problem (finding) Asthma Immunizations Vaccine Date Status Comments Pneumovax administered Note: [facility] bi-d irectional interface ; Source: Other Registry Prevnar administered Note: [facility] bi-d irectional interface ; Source: Other Registry tetanus toxoid, reduced diphtheria toxoid, and acellular pertussis vaccine, adsorbed administered Note: [facility] b i-directional interface ; Source: Other Registry Twinrix administered Note: [facility] bi-d irectional interface ; Source: Other Registry Influenza, seasonal, injecta ble, preservative free administered Note: [facility] bi-direct ional interface ; Source: Other Registry influenza virus vaccine, unspecified formulation administered Note: [facility] bi-di rectional interface ; Source: Other Registry influenza virus vaccine, unspecified formulation administered Note: [facility] bi-di rectional interface ; Source: Other Registry influenza virus vaccine, unspecified formulation administered Note: [facility] bi-di rectional interface ; Source: Other Registry influenza virus vaccine, unspecified formulation administered Note: [facility] bi-di rectional interface ; Source: Other Registry tetanus toxoid, reduced diphtheria toxoid, and acellular pertussis vaccine, adsorbed administered Note: [facility] b i-directional interface ; Source: Other Registry influenza virus vaccine, unspecified formulation administered Note: [facility] bi-di rectional interface ; Source: Other Registry Influenza, seasonal, injectable administe red Note: [facility] bi- directional interface ; Source: Other Registry Engerix-B administered Note: [facility] bi-d irectional interface ; Source: Other Registry Influenza, seasonal, injectable administe red Note: [facility] bi- directional interface ; Source: Other Registry Payers Payer name Insurance type Covered libertarian ID Authoriza tion(s) No Information Social History Type Description Quantity Date Captured Comments Alcohol Use Details Unknown Caffeine Use Details Unknown Tobacco Use Status No Information Smoking Status No Information Sex Female Chief Complaint And Reason For Visit No Information Reason For Referral Reason For Referral No Information Plan Of Treatment Date Type Action Status Goal Lifestyle education regardin g diet completed Referral Ordered: Colonoscopy Appointment date/timeframe: 06/01/2023 ordered Referral Ordered: Anorectal manometry Appointment date/timeframe: 06/15/2023 ordered History Of Present Illness Encounter Date Complaint History Of Prese nt Illness GI Symptoms or Concerns GI Symptoms or Concerns 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 She has to sit throughout the day. Often, when she gets up, she will have a small amount of feces leak out. At times, there has been pieces of formed stool that leak out. She has had to wear adult briefs at times. She has had 2 occasions of bright red blood per rectum where blood leak spontaneously. Denies any perianal pain, however does have itching at times. Has a history of pelvic floor dysfunction and previously underwent anorectal testing at the [facility]. She notes that prior courses of pelvic floor physical therapy has been helpful to manage her symptoms. More recently, she has been doing maneuvers to help circulate her lymphatic fluid. She wonders if the abdominal massage and various maneuvers may be causing her incontinence symptoms. She has been having formed stools at least once daily. She uses a squatty potty regularly. She finds that she will have to massage her abdomen and change position on the toilet to pass stool without having to strain. She does everything she can to prevent straining. She tells me that she had a colonoscopy done in 2019. I do not have access to this record, however patient reports that there were benign polyps and that she was told to come back in 10 years. She also thinks there could be diverticulosis. Patient is not on any antithrombotics. She notes that most of her family members have a history of irritable bowel syndrome. She has had a prior cholecystectomy and ovary removed. Has also had a hernia repair. Functional Status Date Functional Assessmen t No Information Instructions Date Instruction Additional Infor mation Colon Polyps Related to Color ectal polyps Colon Cancer Prevention Related to Colorectal polyps Hemorrhoids (Internal) Related t o Colorectal polyps High Fiber Diet Related to Color ectal polyps Diverticulosis/Diverticulitis Re lated to Colorectal polyps Thank you for trusti ng me with your healthcare. Our plan based on our discussion today is as follows: 1. I have ordered a colonoscopy with plan to evaluate for causes of bleeding2. I have ordered an anorectal manometry (pressure testing of the anus and rectum). I will follow up when results come back. Please call to schedule [facility] clinic follow up as needed if symptoms persist.[facility] can reach me by sending a message through your patient portal or calling my patient coordinator at [phone] SCHEDULE YOUR PROCEDURE:Please call [facility] at then select [facility] 1 for our schedulers Related to Full incontinence of feces Hemorrhoids Related to Full incontinence of feces Lifestyle education regarding di et Related to Dietary counseling and surveillance Assessments Type Assessment Date No Information Patient Care Teams Name Effective Dates (start - stop) Status Members No Information
--- OUTSIDE RECORDS SUMMARY | 2023-11-02 06:45 | XMS_ITS | Encounter Summary ---
Author Name Unknown Organization [facility] Address [address] [place] [address]. [place] [address] Care Team Providers Care Glass Bender Name Role Phone Kiran Bautista MD Primary Care Provider [phone] Marsha Townsend RN Unavailable [phone] Daniele Zhou MD Unavailable [phone] Encounter Details Date Type Department Care Team (Late st Contact Info) Description 11/17/2022 MyC Medical Advice [facility] Audiology [address] [place] [address] Neelam Toussaint, [address] [address] Social History Tobacco Use Types [...] on filedocumented in this encounter Care Teams Glass Bender Relationship Specialty Start Date End Date Kiran Bautista MD PCP - General Family Medicine 10/28/20 Marsha Townsend RN Specialty Solar Installer Technician Surgery 04/04/21 Daniele Zhou MD [address] [place] [address] [address] [place] [address] Assigned Surgical Provider 10/28/22 documented as of this encounter
--- OUTSIDE RECORDS SUMMARY | 2023-11-02 06:45 | XMS_ITS | Encounter Summary ---
Author Name Unknown Organization [facility] Address [address] [facility] [address] Care Team Providers Care Division Supervisor Name Role Phone Mercedes Alonzo Primary Care Provider Kiran Bautista MD Primary Care Provider [phone] Doretha Low MD Unavailable Doyle Bar MD Unavailable [phone] Marsha Townsend RN Unavailable [phone] Andrey Portillo MD Unavailable [phone] Doretha Low MD Unavailable Daniele Zhou MD Unavailable [phone] Doretha Low MD Unavailable Daniele Zhou MD Unavailable [phone] Encounter Details Date Type Department Care Team (Late st Contact Info) Description 10/11/2020 External Order Results [facility] [address] [place] [address] Outside, Provider Social History Tobacco Use Types Packs/Day Years [...] have Coronavirus / COVID-19? No / Unsure 09/20/2020 12:35 PM CDT documented as of this encounter Plan of Treatment Not on file documented as of this encounter Procedures Procedure Name Priority Date/Time Associated Diagnosis Comments COVID-19 VIRUS (CORONAVIRUS) BY PCR (EXTERNAL RESULT) Routine 10/11/2020 6:40 PM CDT documented in this encounter Results * COVID-19 Virus (Coronavirus) by PCR (External Result) (10/11/2020 6:40 PM CDT) COVID-19 Virus by PCR (External Result) Absent Absent [facility] 10/11/2020 6:40 PM CDT Narrative [facility] - 11/09/2020 11:51 AM CDT Verified by Ольга Fitzgerald on 11/09/2020. Patient Reported [facility]AT[facility] [address] [place] [address] documented in this encounter Visit Diagnoses Not on filedocumented in this encounter Care Teams Division Supervisor Relationship Specialty Start Date End Date Mercedes Alonzo [facility] [address] [place] [address] PCP - General Nurse Practitioner 08/12/17 10/27/20 Kiran Bautista MD [facility] [address] [place] [address] PCP - General Family Medicine 10/28/20 Doretha Low MD [address] [place] [address] [address] [place] [address] Assigned Surgical Provider 11/21/20 05/05/22 Doyle Bar MD [address] [address] Assigned Pulmonology Provider 11/14/20 05/12/22 Marsha Townsend, RN [address] [address] Specialty Bagman/Woman Surgery 04/04/21 Andrey Portillo MD [address] [address] Assigned Surgical Provider 05/06/22 06/09/22 Doretha Low MD [address] [address] Assigned Surgical Provider 06/10/22 08/18/22 Daniele Zhou MD [address] [address] Assigned Surgical Provider 08/19/22 10/20/22 Doretha Low MD [address] [address] Assigned Surgical Provider 10/21/22 10/27/22 Daniele Zhou MD [address] [address] Assigned Surgical Provider 10/28/22 documented as of this encounter
--- OUTSIDE RECORDS SUMMARY | 2023-11-02 06:45 | XMS_ITS | Encounter Summary ---
Author Name Unknown Organization [facility] Address [address] [facility] [place] [address] Care Team Providers Care Linux Engineer Name Role Phone Kiran Bautista MD Primary Care Provider Doretha Low MD Unavailable Doyle Bar MD Unavailable [phone] Marsha Townsend RN Unavailable [phone] Andrey Portillo MD Unavailable [phone] Doretha Low MD Unavailable Daniele Zhou MD Unavailable [phone] Doretha Low MD Unavailable Daniele Zhou MD Unavailable [phone] Encounter Details Date Type Department Care Team (Late st Contact Info) Description 01/19/2021 [facility] [place] [place] [id number] [facility] [address] [place] [address] Doretha Low MD [address] [facility] [address] [place] [address] Social History Tobacco Use Types Packs/Day [...] have Coronavirus / COVID-19? No / Unsure 01/21/2021 5:49 AM CDT documented as of this encounter Plan of Treatment Not on file documented as of this encounter Visit Diagnoses Not on filedocumented in this encounter Care Teams Linux Engineer Relationship Specialty Start Date End Date Kiran Bautista MD PCP - General Family Medicine 10/28/20 Doretha Low MD [address] [place] [address] Assigned Surgical Provider 11/21/20 Doyle Bar MD [address] [address] Assigned Pulmonology Provider 11/14/20 05/12/22 Marsha Townsend RN [address] [address] Specialty Physicians And Surgeons Surgery 04/04/21 Andrey Portillo MD [address] [address] Assigned Surgical Provider 05/06/22 Doretha Low MD [address] [place] [address] Assigned Surgical Provider 06/10/22 Daniele Zhou MD [address] [place] [address] Assigned Surgical Provider 08/19/22 Doretha Low MD [address] [place] [address] Assigned Surgical Provider 10/21/2210/27/22 Daniele Zhou MD [address] [place] [address] Assigned Surgical Provider 10/28/22 documented as of this encounter
--- OUTSIDE RECORDS SUMMARY | 2023-11-02 06:45 | XMS_ITS | Referral Summary ---
Author Name Unknown Organization [facility] Address [address] [facility] [place] [address] Care Team Providers Care Survey Researcher Name Role Phone Kiran Bautista MD Primary Care Provider [phone] Marsha Townsend RN Unavailable [phone] Daniele Zhou MD Unavailable [phone] Allergies Active Allergy Reactions Criticality Noted Date Comments Fluticasone 01/19/2022 Fluticasone Furoate-Vilanterol Fatigue,GI Disturbance,Headache,Hive s,Itching,Shortness Of Breath High 09/14/2020 Hydrocodone Hives 08/12/2017 Sulfa Antibiotics Hives 06/12/2012 Vilanterol 01/19/2022 Medications Medication Sig Dispensed Refills Start Date End Date Status ALBUTEROL IN Inhale into the lungs as needed Active busPIRone (BUSPAR) 10 MG tablet Take 20 mg by mouth daily Active rosuvastatin (CRESTOR) 5 MG tablet Take 5 mg by mouth daily Active Vitamin D3 (CHOLECALCIFEROL) 125 MCG (5000 UT) tablet Take 125 mcg by mouth every other day Active estradiol (ESTRACE) 1 MG tablet Take 1 mg by mouth daily Active gabapentin (NEURONTIN) 300 MG capsule Take 300 mg by mouth At Bedtime 04/14/2022 Active estradiol (ESTRACE) 0.1 MG/GM vaginal cream INSERT 0.5 g vaginally twice a week. Use nightly for 2 weeks, then twice weekly. May apply with finger. 04/14/2022 Active clotrimazole (MYCELEX) 10 MG lozengeIndications: Dry mouth Allow 1 austin to dissolve slowly in mouth 5 times daily for 14 days 70 lozenge 06/06/2022 Active Active Problems Problem Noted Date Diagnosed Date Cochlear implant in place 01/27/2021 Overview: Cochlear implants placed on 01/21/[address] Doretha Low: Bilateral, [employer], Ultra 3D Slim J, [id number] [id number]. Sensorineural hearing loss (SNHL) of both ears 0 11/09/2020 Overview: Added automatically from request for surgery [id number] Immunizations Name Administration Dates Next Due DTaP, Unspecified 02/04/2016 Flu, Unspecified 04/05/2009, 8,03/26/2007,2005,04/13/2005 Hepatitis B, Adult 09/04/2002 Influenza (IIV3) PF 04/21/2004,06/03/2002,1999 Influenza Vaccine >6 months,quad, PF 04/07/2011 Influenza, seasonal, injectable, PF 03/25,03/26/2007,04/05/2006,2004 Mantoux Tuberculin Skin Test 04/11/2006,03/17/20 05,03/06/2005 Nasal Influenza Vaccine 2-49 (FluMist) 04/05/2009,04/10/2008 Pneumo Conj 13-V (2010&after) 10/29/2020 Pneumococcal 23 valent 01/07/2021 TDAP (Adacel,Boostrix) 02/04/2016,12/18/2005 TDAP Vaccine (Adacel) 12/18/2005 Td (Adult), Adsorbed 02/13/1999 Tdap (Adult) Unspecified Formulation 02/04/2016 Twinrix A/B 07/19/2011 Social History Tobacco Use Types Packs/Day Years Used Date Smoking Tobacco: Never Smokeless Tobacco: Never Tobacco Cessation:Counseling Given: No Alcohol Use Standard Drinks/Week Comments No 0 (1 standard drink = 0.6 oz pur e alcohol) PHQ-2 Answer Date Recorded PHQ-2 Score 0 05/31/2022 Adolescent Education Answer Date Record ed Getting School Help Needed Not on file 04/08 Sex and Gender Information Value Date Recorded Sex Assigned at Female 10/31/2020 8:19 PM CDT Gender Identity Female 10/31/2020 8:19 PM CDT Sexual Orientation Not on file Last Filed Vital Signs Vital Sign Reading Time Taken Comments Blood Pressure 113/72 04/04/2021 7:50 AM CDT Pulse 74 05/31/2022 7:57 AM CORPORATE GENERAL MANAGER Temperature 36.3 ??C (97.3 ??F) 05/31/2022 7:57 AM CS T Respiratory Rate 15 01/21/2021 7:00 PM CDT Oxygen Saturation 100% 05/31/2022 7:57 AM CORPORATE GENERAL MANAGER Inhaled Oxygen Concentration - - Weight 83.9 kg (185 lb) 06/06/2022 9:34 AM CORPORATE GENERAL MANAGER Height 162.6 cm (5' 4) 06/06/2022 9:34 AM CORPORATE GENERAL MANAGER Body Mass Index 31.76 06/06/2022 9:34 AM CORPORATE GENERAL MANAGER Plan of Treatment Not on file Medical Devices Implanted Type Area Reverberatory Skimmer Device Identifier Shelf Expiration Date Model / Serial / Lot Ear Imp Cochlear 3d Hi-Res Ultra Slim J Ci-1601-05 - [id number] Implanted:Qty: 1 on 01/21/2021 by Doretha Low MD at [facility] Cochlear/Ea r Implant Right: Ear [employer] COM 02/22/2023 CI-1601-0 5 / [id number] / [id number] Ear Imp Cochlear 3d Hi-Res Ultra Slim J Ci-1601-05 - [id number] Implanted:Qty: 1 on 01/21/2021 by Doretha Low MD at [facility] Cochlear/Ea r Implant Left: Ear [employer]ION[employer] COM 02/22/2023 CI-1601-0 5 / [id number] / [id number] Procedures Procedure Name Priority Date/Time Associated Diagnosis Comments GLUCOSE BY METER Routine 01/21/2021 6:27 AM CDT LIPID PROFILE Routine 02/20/2020 from Last 3 Months or Most Recently Relevant to Health Maintenance Results * (ABNORMAL) Glucose by meter (01/21/2021 6:27 AM CDT) GLUCOSE BY METER POCT 108(H) 70 - 99 mg/dL 01/21/2021 6:34 AM CDT [facility] Blood BLOOD SPECIMEN / Unknown 01/21/2021 6:27 AM CDT 01/21/2021 6:34 AM CDT Doretha Low MD LAB - BEAKER POCT [facility] P[facility] [place] [facility] [address] [facility] [address] Building, [address] [place] [address], [facility] [phone] * Lipid Profile (02/20/2020) Cholesterol 199 90 - 200 mg/dL [facility] Triglycerides 138 40 - 197 mg/dL [facility] HDL Cholesterol 77 >=50 mg/dL [facility] LDL Cholesterol Calculated 94 <100 mg/dL [facility] Blood 02/20/2020 Narrative [facility] - 02/20/2020 LAB RESULT [facility] Provider Outside LAB - BLOOD ORDERABL ES Performing Organization Address City/[facility]/ZIP Co de Phone Number [facility] [address] [place] [address], [facility] [phone] from Last 3 Months or Most Recently Relevant to Health Maintenance Care Teams Survey Researcher Relationship Specialty Start Date End Date Kiran Bautista MD PCP - General Family Medicine 5/6/21 Marsha Townsend RN Specialty Machinist Supervisor Outside Surgery 04/04/21 Daniele Zhou MD [address] [place] [address] Assigned Surgical Provider 10/28/22
--- OUTSIDE RECORDS SUMMARY | 2023-11-02 06:45 | XMS_ITS | Encounter Summary ---
Author Name Unknown Organization [place] Address [facility] [place] [address] Care Team Providers Care Acid Washer Operator Name Role Phone Kiran Bautista MD Primary Care Provider Doretha Low MD Unavailable Doyle Bar MD Unavailable [phone] Marsha Townsend RN Unavailable [phone] Andrey Portillo MD Unavailable [phone] Doretha Low MD Unavailable Daniele Zhou MD Unavailable [phone] Doretha Low MD Unavailable Daniele Zhou MD Unavailable [phone] Encounter Details Date Type Department Care Team (Late st Contact Info) Description 12/27/2020 [facility] [address] 4th [place] [address] [facility] Social History Tobacco Use Types Packs/Day [...] on filedocumented in this encounter Care Teams Acid Washer Operator Relationship Specialty Start Date End Date Kiran Bautista MD PCP - General Family Medicine 10/28/20 Doretha Low MD [address] [address] Assigned Surgical Provider 11/21/20 Doyle Bar MD [address] [address] Assigned Pulmonology Provider 11/14/20 05/12/22 Marsha Townsend RN [address] [address] Specialty Construction Director Surgery 04/04/21 Andrey Portillo MD [address] [address] Assigned Surgical Provider 05/06/22 Doretha Low MD [address] [address] Assigned Surgical Provider 06/10/22 Daniele Zhou MD [address] 637875 Assigned Surgical Provider 08/19/22 Doretha Low MD [address] [address] Assigned Surgical Provider 10/21/2210/27/22 Daniele Zhou MD [address] [address] Assigned Surgical Provider 10/28/22 documented as of this encounter
--- OUTSIDE RECORDS SUMMARY | 2023-11-02 06:45 | XMS_ITS | Encounter Summary ---
Author Name Unknown Organization [place] Address [facility] [place] [address] Care Team Providers Care Grocery Supervisor Name Role Phone Kiran Bautista MD Primary Care Provider Doretha Low MD Unavailable Doyle Bar MD Unavailable [phone] Marsha Townsend RN Unavailable [phone] Andrey Portillo MD Unavailable [phone] Doretha Low MD Unavailable Daniele Zhou MD Unavailable [phone] Doretha Low MD Unavailable Daniele Zhou MD Unavailable [phone] Encounter Details Date Type Department Care Team (Late st Contact Info) Description 01/18/2021 [facility] [address] 4th [place] [address] [facility] Social History Tobacco Use Types Packs/Day Years [...] on filedocumented in this encounter Care Teams Grocery Supervisor Relationship Specialty Start Date End Date Kiran Bautista MD PCP - General Family Medicine 10/28/20 Doretha Low MD [address] 706425 Assigned Surgical Provider 11/21/20 Doyle Bar MD [address] [address] Assigned Pulmonology Provider 11/14/20 05/12/22 Marsha Townsend RN [address] [address] Specialty Private Branch Exchange Service Adviser Surgery 04/04/21 Andrey Portillo MD [address] [address] Assigned Surgical Provider 05/06/22 Doretha Low MD [address] [place] [address] 750215 Assigned Surgical Provider 06/10/22 Daniele Zhou MD [address] [place] [address] [address] Assigned Surgical Provider 08/19/22 Doretha Low MD [address] 762665 Assigned Surgical Provider 10/21/2210/27/22 Daniele Zhou MD [address] [address] Assigned Surgical Provider 10/28/22 documented as of this encounter
--- OUTSIDE RECORDS SUMMARY | 2023-11-02 06:45 | XMS_ITS | Clinical Summary ---
Author Name Unknown Organization [place] Address [address] [place] [address]. [place] [address] Care Team Providers Care Control Integration Engineer Name Role Phone Kiran Bautista MD Primary Care Provider [phone] Marsha Townsend RN Unavailable [phone] Daniele Zhou MD Unavailable [phone] Allergies Active Allergy Reactions Criticality Noted Date [...] Bilateral, [employer]ion[employer], Ultra 3D Slim J, Ypuu=[id number] Ugnmg=[id number]. Sensorineural hearing loss (SNHL) of both ears 0 11/09/2020 Overview: Added automatically from request for surgery [id number] Immunizations Name Administration Dates Next Due DTaP, [...] (Adult) Unspecified Formulation 02/04/2016 Twinrix A/B 07/19/2011 Family History Medical History Relation Comments Asthma Daughter Asthma Other Relation Status Comments Daughter Other Social History Tobacco Use Types Packs/Day Years [...] AM CDT Pulse 74 05/31/2022 7:57 AM COLLISION ESTIMATOR Temperature 36.3 ??C (97.3 ??F) 05/31/2022 7:57 AM CS T Respiratory Rate 15 01/21/2021 7:00 PM CDT Oxygen Saturation 100% 05/31/2022 7:57 AM COLLISION ESTIMATOR Inhaled Oxygen Concentration - - Weight 83.9 kg (185 lb) 06/06/2022 9:34 AM COLLISION ESTIMATOR Height 162.6 cm (5' 4) 06/06/2022 9:34 AM COLLISION ESTIMATOR Body Mass Index 31.76 06/06/2022 9:34 AM COLLISION ESTIMATOR Plan of Treatment Health Maintenance Due Date Last Done Comments ADVANCE CARE PLANNING 1968 ANNUAL REVIEW OF HM ORDERS 1968 CT COLONOGRAPHY 1968 FIT 1968 FLEX SIG 1968 MAMMO SCREENING 1968 YEARLY PREVENTIVE VISIT 1968 sDNA (Cologuard) 1968 COLONOSCOPY 1978 COLORECTAL CANCER SCREENING 1978 HIV SCREENING 11/16/1983 HEPATITIS C SCREENING 1986 PAP 1989 HEPATITIS B IMMUNIZATION (3 of 3 - 19+ 3-dose series) 09/13/2011 07/19/2011, 09/04/2002 ZOSTER IMMUNIZATION (1 of 2) 2018 LIPID 02/19/2021 02/20/2020 COVID-19 Vaccine ( season) 2023 PHQ-2 (once per calendar year) 2023 05/31/2022, 02/14/2021, 10/28/2020, Additional history exists GLUCOSE 01/22/2024 01/21/2021, 12/24, 02/20/2020, Additional history exists INFLUENZA VACCINE (Season Ended) 2024 04/07/2011, 04/07/2011, 04/05/2009, Additional history exists DTAP/TDAP/TD IMMUNIZATION (6 - Td or Tdap) 02/03/2026 02/04/2016, 02/04/2016, 02/04/2016, Additional history exists Pneumococcal Vaccine: Pediatrics (0 to 5 Years) and At-Risk Patients (6 to 64 Years) (3 of 3 - PPSV23 or PCV20) 2033 01/07/2021, 10/29/2020 HPV IMMUNIZATION Aged Out No longer e ligible based on patient's age to complete this topic IPV IMMUNIZATION Aged Out No longer e ligible based on patient's age to complete this topic MENINGITIS IMMUNIZATION Aged Out No l onger eligible based on patient's age to complete this topic RSV MONOCLONAL ANTIBODY Aged Out No l onger eligible based on patient's age to complete this topic Medical Devices Implanted Type Area Batch Unit Treater Device Identifier Shelf Expiration Date Model / Serial / Lot Ear Imp Cochlear 3d Hi-Res Ultra Slim J Ci-1601-05 - [id number] Implanted:Qty: 1 on 01/21/2021 by Doretha Low MD at [facility] Cochlear/Ea r Implant Right: Ear [employer]VANCED [employer]ION[employer] COM 02/22/2023 CI-1601-0 / [id number] / [id number] Ear Imp Cochlear 3d Hi-Res Ultra Slim J Ci-1601-05 - [id number] Implanted:Qty: 1 on 01/21/2021 by Doretha Low MD at [facility] Cochlear/Ea r Implant Left: Ear ADVANCED BIONICS COM 02/22/2023 CI-1601-0 5 / [id number] / [id number] Procedures Procedure Name Priority Date/Time [...] LAB - BEAKER POCT UU LABORATORY POC [facility] [place] [facility] [address] [facility], Room [address] [place] [address], [facility] [phone] * Lipid Profile (02/20/2020) Cholesterol 199 90 - 200 mg/dL [facility] Triglycerides 138 40 - 197 mg/dL [facility] HDL Cholesterol 77 >=50 mg/dL [facility] LDL Cholesterol Calculated 94 <100 mg/dL [facility] Blood 02/20/2020 Narrative [facility] - 02/20/2020 LAB RESULT [facility] Provider Outside LAB - BLOOD ORDERABL ES Performing Organization Address City/[facility]/ZIP Co de Phone Number [facility] [address] [place] [address], [facility] [phone] from Last 3 Months or Most Recently Relevant to Health Maintenance Care Teams Control Integration Engineer Relationship Specialty Start Date End Date Kiran Bautista MD PCP - General Family Medicine 10/28/20 Marsha Townsend RN Specialty Pipeline Controller Surgery 04/04/21 Daniele Zhou MD [address] [place] [address] Assigned Surgical Provider 10/28/22
--- OUTSIDE RECORDS SUMMARY | 2023-11-02 06:45 | XMS_ITS | Encounter Summary ---
Author Name Unknown Organization [place] Address [address] [facility] [place] [address] Care Team Providers Care Flight Operation Coordinator Name Role Phone Kiran Bautista MD Primary Care Provider Doretha Low MD Unavailable Doyle Bar MD Unavailable [phone] Marsha Townsend RN Unavailable [phone] Andrey Portillo MD Unavailable [phone] Doretha Low MD Unavailable Daniele Zhou MD Unavailable [phone] Doretha Low MD Unavailable Daniele Zhou MD Unavailable [phone] Encounter Details Date Type Department Care Team (Late st Contact Info) Description 12/02/2020 [facility] Adv[facility] [place] [address] [facility] [address] 4th [place] [address] Doretha Low MD 420 [facility] [address] [place] [address] Social History Tobacco Use Types [...] on filedocumented in this encounter Care Teams Flight Operation Coordinator Relationship Specialty Start Date End Date Kiran Bautista MD PCP - General Family Medicine 10/28/20 Doretha Low MD [address] [place] [address] Assigned Surgical Provider 11/21/20 Doyle Bar MD [address] [address] Assigned Pulmonology Provider 11/14/20 05/12/22 Marsha Townsend RN [address] [address] Specialty Railcar Foreman Surgery 04/04/21 Andrey Portillo MD [address] [address] Assigned Surgical Provider 05/06/22 Doretha Low MD [address] [place] [address] Assigned Surgical Provider 06/10/22 Daniele Zhou MD [address] [place] [address] Assigned Surgical Provider 08/19/22 Doretha Low MD [address] [place] [address] Assigned Surgical Provider 10/21/2210/27/22 Daniele Zhou MD [address] [place] [address] Assigned Surgical Provider 10/28/22 documented as of this encounter
--- OUTSIDE RECORDS SUMMARY | 2023-11-02 06:45 | XMS_ITS | Encounter Summary ---
Author Name Unknown Organization [place] Address [address] [facility] [place] [address] Care Team Providers Care Nursing Admin Name Role Phone Kiran Bautista MD Primary Care Provider [phone] Doretha Low MD Unavailable Doyle Bar MD Unavailable [phone] Marsha Townsend RN Unavailable Andrey Portillo MD Unavailable [phone] Doretha Low MD Unavailable Daniele Zhou MD Unavailable [phone] Doretha Low MD Unavailable Daniele Zhou MD Unavailable [phone] Encounter Details Date Type Department Care Team (Late st Contact Info) Description 01/06/2021 [facility] [place] [address] [facility] [address] [place] [address] Doretha Low MD 420 [facility] [address] [place] [address] Social History Tobacco Use Types [...] on filedocumented in this encounter Care Teams Nursing Admin Relationship Specialty Start Date End Date Kiran Bautista MD PCP - General Family Medicine 10/28/20 Doretha Low MD [address] [place] [address] 788705 Assigned Surgical Provider 11/21/20 Doyle Bar MD [address] [id number] Assigned Pulmonology Provider 11/14/20 05/12/22 Marsha Townsend RN [address] [address] Specialty Administrative Supervisor Surgery 04/04/21 Andrey Portillo MD [address] [place] [address] [facility] [address] [place], [place] 402845 Assigned Surgical Provider 05/06/22 Doretha Low MD [address] [facility] [address] [place], [place] 626425 Assigned Surgical Provider 06/10/22 Daniele Zhou MD [address] [facility] [address] [place] [address] Assigned Surgical Provider 08/19/22 Doretha Low MD [address] [address] Assigned Surgical Provider 10/21/2210/27/22 Daniele Zhou MD [address] [id number] Assigned Surgical Provider 10/28/22 documented as of this encounter
--- OUTSIDE RECORDS SUMMARY | 2023-11-02 06:45 | XMS_ITS | Encounter Summary ---
Author Name Unknown Organization [place] Address [facility]0 [facility] [address] Care Team Providers Care Senior Mechanical Estimator Name Role Phone Kiran Bautista MD Primary Care Provider Doretha Low MD Unavailable Doyle Bar MD Unavailable [phone] Marsha Townsend RN Unavailable [phone] Andrey Portillo MD Unavailable [phone] Doretha Low MD Unavailable Daniele Zhou MD Unavailable [phone] Doretha Low MD Unavailable Daniele Zhou MD Unavailable [phone] Encounter Details Date Type Department Care Team (Late st Contact Info) Description 04/01/2021 [facility] Medical Advice [facility] Audiology [address] 4th [place] [address] Neelam Toussaint, Liam [address] [place] [address] Social History Tobacco Use Types Packs/Day [...] have Coronavirus / COVID-19? No / Unsure 04/04/2021 8:41 AM CDT documented as of this encounter Plan of Treatment Not on file documented as of this encounter Visit Diagnoses Not on filedocumented in this encounter Care Teams Senior Mechanical Estimator Relationship Specialty Start Date End Date Kiran Bautista MD PCP - General Family Medicine 10/28/20 Doretha Low MD [address] [place] [address] Assigned Surgical Provider 11/21/20 Doyle Bar MD [address] [address] Assigned Pulmonology Provider 11/14/20 05/12/22 Marsha Townsend RN [address] [address] Specialty Insulator Apprentice Surgery 04/04/21 Andrey Portillo MD 420 [facility] [address] [place] [address] Assigned Surgical Provider 05/06/22 Doretha Low MD [address] [place] [address] 396 [place] [address] Assigned Surgical Provider 06/10/22 Daniele Zhou MD [address] [address] Assigned Surgical Provider 08/19/22 Doretha Low MD [address] [address] Assigned Surgical Provider 10/21/2210/27/22 Daniele Zhou MD [address] [address] Assigned Surgical Provider 10/28/22 documented as of this encounter
--- OUTSIDE RECORDS SUMMARY | 2023-11-02 06:46 | XMS_ITS | Encounter Summary ---
Author Name Unknown Organization [place] Address [address] [facility] [place] [address] Care Team Providers Care Red Lead Burner Name Role Phone Mercedes Alonzo Primary Care Provider Kiran Bautista MD Primary Care Provider [phone] Doretha Low MD Unavailable Doyle Bar MD Unavailable [phone] Marsha Townsend RN Unavailable [phone] Andrey Portillo MD Unavailable [phone] Doretha Low MD Unavailable Daniele Zhou MD Unavailable [phone] Doretha Low MD Unavailable Daniele Zhou MD Unavailable [phone] Encounter Details Date Type Department Care Team (Late st Contact Info) Description 10/02/2020 [facility] [place] [address] [address] Arminda Fisher CMA Social History Tobacco Use Types Packs/Day Years [...] on filedocumented in this encounter Care Teams Red Lead Burner Relationship Specialty Start Date End Date [place] Mercedes L [address] [address] PCP - General Nurse Practitioner 08/12/17 10/27/20 Kiran Bautista MD [address] [address] PCP - General Family Medicine 10/28/20 Doretha Low MD 420 [facility] [address] [place] [address] Assigned Surgical Provider 11/21/20 05/05/22 Doyle Bar MD [address] [address] Assigned Pulmonology Provider 11/14/20 05/12/22 Marsha Townsend RN [address] [address] Specialty Real Estate Operations Manager Surgery 04/04/21 Andrey Portillo MD [address] [facility] [address] [place], [place] 14[address] Assigned Surgical Provider 05/06/22 06/09/22 Doretha Low MD [address] [place] [address] Assigned Surgical Provider 06/10/22 08/18/22 Daniele Zhou MD [address] [place] [address] Assigned Surgical Provider 08/19/22 10/20/22 Doretha Low MD [address] [place] [address] Assigned Surgical Provider 10/21/22 10/27/22 Daniele Zhou MD [address] [place] [address] Assigned Surgical Provider 10/28/22 documented as of this encounter
--- OUTSIDE RECORDS SUMMARY | 2023-11-02 06:46 | XMS_ITS | Encounter Summary ---
Author Name Unknown Organization [place] Address [address] [place] [address]. [place] [address] Care Team Providers Care Research Geologist Name Role Phone Mercedes Alonzo Primary Care Provider Kiran Bautista MD Primary Care Provider [phone] Doretha Low MD Unavailable Doyle Bar MD Unavailable [phone] Marsha Townsend RN Unavailable [phone] Andrey Portillo MD Unavailable [phone] Doretha Low MD Unavailable Daniele Zhou MD Unavailable [phone] Doretha Low MD Unavailable Daniele Zhou MD Unavailable [phone] Reason for Visit * Reason Onset Date Comments Appointment 09/07/2020 Cochlear implant s Encounter Details Date Type Department Care Team ([facility] st Contact Info) Description 09/07/2020 Telephone [facility] Audiology [address] 4th [place] [address] Neelam Villa, Liam [address] [place] [address] Appointment (Cochlear implants) Social History Tobacco Use Types Packs/Day Years Used Date Smoking Tobacco: Never Smokeless Tobacco: Never Alcohol Use Standard Drinks/Week Comments No 0 (1 standard drink = 0.6 oz pur e alcohol) Sex and Gender Information Value Date Recorded Sex Assigned at Female 10/31/2020 8:19 PM CDT Gender Identity Female 10/31/2020 8:19 PM CDT Sexual Orientation Not on file documented as of this encounter Miscellaneous Notes * Telephone Encounter - Elly Sorensen - 09/07/2020 2:26 PM CDT [facility] Phone Message May a detailed message be left on voicemail: yes Reason for Call: Other: Pt currently has hearing aids and is interested in getting cochlear implants. Please reach out to Pt for scheduling. Thank you. Action Taken: Message routed to: [facility] Audiology Travel Screening: Not Applicable documented in this encounter Plan of Treatment Not on file documented as of this encounter Visit Diagnoses Not on filedocumented in this encounter Care Teams Research Geologist Relationship Specialty Start Date End Date Mercedes Alonzo [place] [address] [address], [place] [address] PCP - General Nurse Practitioner 08/12/17 10/27/20 Kiran Bautista MD [place] [address] [address], [place] [address] PCP - General Family Medicine 10/28/20 Doretha Low MD [address] [place] [address] 395405 Assigned Surgical Provider 11/21/20 05/05/22 Doyle Bar MD [address] [address] Assigned Pulmonology Provider 11/14/20 05/12/22 Marsha Townsend, RN [address] [address] Specialty Greenskeeper Head Surgery 04/04/21 Andrey Portillo MD [address] [place] [address] 1035[address] Assigned Surgical Provider 05/06/22 06/09/22 Doretha Low MD [address] [place] [address] 039785 Assigned Surgical Provider 06/10/22 08/18/22 Daniele Zhou MD [address] [address] 154995 Assigned Surgical Provider 08/19/22 10/20/22 Doretha Low MD [address] [place] [address] 883835 Assigned Surgical Provider 10/21/22 10/27/22 Daniele Zhou MD [address] [address] 139985 Assigned Surgical Provider 10/28/22 documented as of this encounter
== END 2023-11-01 16:38 | disposition home or self-care (01) ==
LOC: NFLDREF 11-02 06:43
PROVIDERS: PCP Physician Assistant Medical; Referring Provider Physician Assistant Medical; Visit Provider Physician Assistant Medical
DX: Z00.00 Encounter for general adult medical examination without abnormal findings (principal); R73.03 Prediabetes; J45.909 Unspecified asthma, uncomplicated; R74.8 Abnormal levels of other serum enzymes; Z76.89 Persons encountering health services in other specified circumstances
CPT/HCPCS: 80053

== ENCOUNTER 2024-10-29 08:25 | Outpatient (CLI) | payer OTHER, SELFPAY | END 2024-10-29 08:26 | disposition home or self-care (01) | LOC: LKVREF 08:27 | PROVIDERS: PCP Physician Assistant Medical; Visit Provider Physician Assistant Medical | DX: F41.8 Other specified anxiety disorders (principal); R41.9 Unspecified symptoms and signs involving cognitive functions and awareness; R74.8 Abnormal levels of other serum enzymes; N95.1 Menopausal and female climacteric states; Z79.899 Other long term (current) drug therapy | CPT/HCPCS: 80053; 80061; 82306; 82607; 84443 ==

== ENCOUNTER 2024-11-27 09:40 | Outpatient (CLI) | payer OTHER, SELFPAY | END 2024-11-27 09:41 | disposition home or self-care (01) | LOC: LKVREF 09:41 | PROVIDERS: PCP Physician Assistant Medical; Visit Provider Physician Assistant Medical | DX: E53.8 Deficiency of other specified B group vitamins (principal); R74.8 Abnormal levels of other serum enzymes | CPT/HCPCS: 82607; 84443 ==